=== PATIENT | male | born 1940 | race Caucasian/White ===

== ENCOUNTER 2017-03-19 05:02 | Inpatient (IN) ==
[2017-03-13 16:32] LABS: Appearance,Urine HAZY; Bilirubin,Urine NEG (NEG); Color,Urine YELLOW; Glucose,Urine (UA) NEGATIVE (NEG); Leukocyte Esterase,Urine NEG /uL (NEG); Nitrate,Urine NEG (NEG); Protein,Urine NEG (NEG); Specific Gravity,Urine 1.015 (1.000-1.035); Urine Blood NEG mg/dL (<0.03); Urobilinogen,Urine NEG (NEG)
[2017-03-13 17:27] LABS: Basophils # (Auto) 0 K/mcL (0.0-0.3); Basophils % (Auto) 0.6 % (0.0-2.0); Eosinophils # (Auto) 0.2 K/mcL (0.0-0.7); Eosinophils % (Auto) 2.8 % (0.0-7.0); Granulocytes % (Auto) 59.6 % (38.0-78.0); Lymphocytes % (Auto) 28.3 % (15.5-49.0); Mean Cell Volume 90.6 fL (80.0-100.0); Mean Corpuscular HGB Conc 34.5 g/dL (31.0-36.0); Mean Corpuscular Hemoglobin 31.3 pg (26.0-34.0); Monocytes # (Auto) 0.6 K/mcL (0.1-0.9); Monocytes % (Auto) 8.7 % (1.0-12.0); Platelet Count 249 K/mcL (140-440); RBC 4.32 M/mcL (4.50-5.90); Red Cell Distribution Width 12.6 % (11.5-14.5)
[2017-03-13 17:38] LABS: Blood Urea Nitrogen 16 mg/dl (8-23)
[~2017-03-19 05:02] MED LIST: CELECOXIB 200 MG CAPSULE PO SCH; PREGABALIN 75 MG CAPSULE PO SCH; ceFAZolin 1 GM VIAL IV SCH; oxyCODONE 10 MG TAB.ER.12H PO SCH
[2017-03-19] MEDS ORDERED: ONDANSETRON 4 MG/2 ML VIAL IV ONE (07:30)
[2017-03-19] MEDS ORDERED: PROPOFOL 200 MG/20 ML VIAL IV ONE (07:30)
[2017-03-19] MEDS ORDERED: GLYCOPYRROLATE 0.2 MG/ML VIAL IV ONE (07:30)
[2017-03-19] MEDS ORDERED: TRANEXAMIC ACID 1,000 MG/10 ML VIAL IV ONE ×2 (07:30→09:14)
[2017-03-19] MEDS ORDERED: MIDAZOLAM 2 MG/2 ML VIAL IV ONE (07:30)
[2017-03-19] MEDS ORDERED: PHENYLEPHRINE 10 MG/ML VIAL IV ONE (07:30)
[2017-03-19] MEDS ORDERED: KETAMINE 100 MG/ML ML IV ONE (07:30)
[2017-03-19] MEDS ORDERED: LIDOCAINE HCL/PF 100 MG/5 ML SYRINGE IV ONE (07:30)
[2017-03-19] MEDS ORDERED: GENTAMICIN SULFATE 800 MG/20 ML VIAL IR ONE (08:05)
[2017-03-19] MEDS ORDERED: MEPERIDINE 25 MG/ML SYRINGE IV PRN (08:44)
[2017-03-19] MEDS ORDERED: fentaNYL 100 MCG/2 ML VIAL IV PRN (08:44)
[2017-03-19] MEDS ORDERED: BENZOCAINE/MENTHOL 1 LOZENGE PO PRN ×2 (08:44→09:14)
[2017-03-19] MEDS ORDERED: ePHEDrine 50 MG/ML AMPUL IV PRN (08:44)
[2017-03-19] MEDS ORDERED: ONDANSETRON 4 MG/2 ML VIAL IV PRN ×2 (08:44→09:14)
[2017-03-19] MEDS ORDERED: METHOCARBAMOL 1,000 MG/10 ML VIAL IV PRN (08:44)
[2017-03-19] MEDS ORDERED: IPRATROPIUM/ALBUTEROL 3 ML AMPUL.NEB NEB PRN (08:44)
[2017-03-19] MEDS ORDERED: LACTATED RINGERS 1,000 ML IV SCH (08:45)
--- NOTE | 2017-03-19 09:12 | Brief Operative Note ---
Date of procedure: 03/19/17 Pre-op diagnosis: rigt hip oa Post-op diagnosis: same Procedure: right total hip arthroplasty Grafts/Implants: Yes Anesthesia: spinal Complications: none Surgeon: Chano Trent Model Engine Mechanic: Marcela Scherer Estimated blood loss (cc): 150 Specimens Removed/Pathology: none sent Condition: stable Disposition: PACU
[2017-03-19] MEDS ORDERED: FLEETS ADULT ENEMA PR PRN (09:14)
[2017-03-19] MEDS ORDERED: BISACODYL 10 MG SUPP.RECT PR PRN (09:14)
[2017-03-19] MEDS ORDERED: METHOCARBAMOL 750 MG TABLET PO PRN (09:14)
[2017-03-19] MEDS ORDERED: MAGNESIUM HYDROXIDE 30 ML ORAL.SUSP PO PRN (09:14)
[2017-03-19] MEDS ORDERED: POLYETHYLENE GLYCOL 3350 17 GM PACKET PO PRN (09:14)
[2017-03-19] MEDS: ACETAMINOPHEN 1,000 MG/100 ML BOTTLE IV SCH ×3 (09:52→20:48)
--- NOTE | 2017-03-19 10:45 | XRay Report ---
HISTORY: Reason for Exam:Post-op Total Hip FINDINGS: There is well-positioned total hip prosthesis. No fracture is present. 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 IMPRESSION: Well-positioned right hip prosthesis Interpreted and Authenticated by: Az Ribera 03/19/17
[2017-03-19] MEDS: 0.9 % SODIUM CHLORIDE 1,000 ML IV SCH ×2 (11:00→20:01)
--- NOTE | 2017-03-19 11:56 | Operative Note ---
DATE OF OPERATION: 03/19/2017 PREOPERATIVE DIAGNOSIS: Degenerative joint disease, right hip. POSTOPERATIVE DIGNOSIS: Degenerative joint disease, right hip. PROCEDURE: Right total hip arthroplasty. SURGEON: Nehemias Trent M.D. DRAWING INSTRUCTOR SURGEON: Marcela Scherer PA-C. ANESTHESIA: Spinal with LMA assist. ESTIMATED BLOOD LOSS: 150 mL. COMPLICATIONS: None noted. SPECIMENS REMOVED: None. DRAINS: None. IMPLANTS: DePuy [place] Hole Eliminator PS; DePuy Fanwood Gription acetabular shell 58 mm; DePuy Fanwood Altrx polyethylene acetabular liner +4, 10 degree, 36 x 58; DePuy Biolox delta ceramic femoral head +5, 36 mm diameter; DePuy Tri-Lock BPS femoral stem with Gription size 7 standard. INDICATIONS: The patient has had a longstanding history of worsening pain in the hip that has failed conservative treatment. Radiographs have confirmed advanced degenerative joint disease. After a long discussion about treatment options, the patient elected to proceed with a hip arthroplasty. The risks and benefits were discussed with the patient in detail including, but not limited to, the risks of anesthesia, problems with the heart or lungs related to anesthesia, infection, compromise or injury to the nerves and blood vessels, deep venous thrombosis, pulmonary embolism, pneumonia, continued pain after surgery, worsening pain or symptoms after surgery, swelling, loss of motion, instability, leg length discrepancy, and need for repeat surgery. DESCRIPTION OF PROCEDURE: The patient was seen in pre-anesthesia waiting room where all questions were answered and the correct side and site were identified and marked. The patient was then brought to the operating room and administered the anesthetic and given pre-operative antibiotics. A time-out was then called. The patient was placed in the lateral decubitus position with all prominences well padded using the Dontae frame and the extremity was prepped and draped in the usual sterile fashion. Anesthesia gave the patient 1 gm of tranexamic acid via an intravenous route. A standard posterior approach was made. We dissected through the skin and subcutaneous tissue to the deep fascia. The deep fascia was split in line with the incision and a Charnley retractor was placed. We exposed, tagged, and incised the short external rotators and piriformis tendon and retracted them posteriorly to help protect the sciatic nerve which was palpated throughout the case. We then performed a T-capsulotomy and tagged the capsule edges. Prior to dislocating the hip, we set a length and offset gauge from a Steinmann pin in the iliac wing to a case on the greater trochanter. The hip was then dislocated and a femoral neck osteotomy was performed to the pre-surgical templated level off the lesser trochanter. The head was removed and sized. We next turned our attention to the acetabulum. Retractors were placed for optimal visualization. A complete labral excision was performed. The capsule was preserved for later closure. We began reaming using anatomic landmarks with the DePuy Fanwood acetabular system. We medialized the cup and reamed up to provide good fill and coverage of the trial. When the trial was stable and appropriately positioned with approximately 20 degrees of anteversion and 45 degrees of abduction, we impacted the DePuy Fanwood cup and placed a cancellous screw in the posterior-superior quadrant. Osteophytes were removed from around the shell. We placed the trial liner and turned our attention to the femur. We placed retractors for visualization, internally rotated the femur, and established intramedullary access. We broached using the DePuy Tri-Lock stem to a stable platform medial, lateral, and rotationally with the appropriate version. We then performed a calcar reaming off the broach. Trials were then placed and optimized for leg length and stability. We used the leg length and offset guide to confirm our trials. Best stability, length, and offset characteristics were obtained with these sizes. We removed all trials and impacted the polyethylene acetabular liner in a standard fashion after a thorough irrigation. We then impacted the femoral stem to its broached location and placed the head. Final reduction was performed. Again, good stability, leg length, and offset characteristics were noted. We irrigated with three liters of antibiotic saline. We closed the capsule with #2 FiberWire. We placed a deep drain and closed the fascia with a combination of looped #0 Maxon and #0 Vicryl. We closed the subcutaneous tissue and skin in layers out to kwame in the skin. A sterile pressure dressing and abduction wedge was applied. All needle and sponge counts were correct. The patient was transferred to the recovery room in stable condition. Kristen Job ID: [id number] Doc ID: [id number] Nehemias Trent MD
[2017-03-19] MEDS: KETOROLAC 15 MG/ML VIAL IV PRN (12:29)
[2017-03-19] MEDS: ceFAZolin 1 GM VIAL IV SCH ×2 (13:55→21:44)
[2017-03-19] MEDS: 0.9 % SODIUM CHLORIDE 10 ML SYRINGE IV SCH ×2 (13:55→20:03)
[2017-03-19] MEDS: HYDROmorphone 2 MG/ML SYRINGE IV PRN ×2 (14:52→20:03)
[2017-03-19] MEDS: FERROUS SULFATE 325 MG TABLET PO SCH (17:35)
[2017-03-19] MEDS: HYDROcodone/APAP 10/325MG TABLET PO PRN (17:35)
[2017-03-19] MEDS: SENNOSIDES 1 TABLET PO SCH (20:45)
[2017-03-19] MEDS: PARoxetine 20 MG TABLET PO SCH (20:46)
[2017-03-19] MEDS: DOCUSATE SODIUM 100 MG CAPSULE PO SCH (20:46)
[2017-03-19] MEDS: ASPIRIN 325 MG ENTERIC COATED TABLET PO SCH (20:47)
[2017-03-19] MEDS: SIMVASTATIN 40 MG TABLET PO SCH (20:47)
[2017-03-19] MEDS: amLODIPine 5 MG TABLET PO SCH (20:51)
[2017-03-19] MEDS: METOPROLOL TARTRATE 50 MG TABLET PO SCH (20:51)
[2017-03-20] MEDS: ACETAMINOPHEN 1,000 MG/100 ML BOTTLE IV SCH (02:31)
[2017-03-20] MEDS: KETOROLAC 15 MG/ML VIAL IV PRN (03:59)
[2017-03-20] MEDS: 0.9 % SODIUM CHLORIDE 1,000 ML IV SCH ×3 (03:59→20:56)
[2017-03-20] MEDS: 0.9 % SODIUM CHLORIDE 10 ML SYRINGE IV SCH ×3 (04:20→23:52)
--- NOTE | 2017-03-20 06:56 | Discharge Summary ---
Providers - Providers Patient information: Note initiated : 03/20/17 at 6:54 am Service Date, if different from initiated Date: [] Patient: Figueroa Block 76 y/o M admitted on 03/19/17 for Right Total Hip Arthroplasty. Chief Complaint: [right LUPE] Patient is POD#1 s/p right LUPE. He is doing well this morning, ambulating well without much difficulty or pain. He has no complaints presently. Denies numbness , tingling, or calf pain. Discharge date: 03/20/17 Attending physician: Chano Trent Hospitalization Hospital course: Patient was brought to the hospital yesterday for a right LUPE. Was admitted overnight for pain control and observation with no noted event. We plan for d/c to home today. He will f/u in clinic in 2 weeks time. Discharge diagnosis: right hip osteoarthritis Exam - Exam Incision healing: Yes Incision draining: No Incision red: No Incision swollen: No Incision inflamed: No Clean and dry: Yes Weight bearing status: as tolerated (with ambulatory device) Range of motion: acceptable flexion, extension Ortho Discharge - LUPE - Patient Instructions Diet: Regular Diet Activity: activity as tolerated, ambulate with assistive device, weight bearing as tolerated Total Hip Protocol: Follow activity instructions as provided by Physical Therapy. Dressing Care: May shower in 2 days, Other (leave dermabond patch in place) Patient Education: Total Hip Replacement (DC) - Follow Up Plan Follow Up Appointments: Chano Trent MD [Physician] - 04/03/17 () Disposition: Home, Self-Care Prognosis: Fair Rehab Potential: Fair Overall status at discharge: patient is progressing back to baseline - Orders For Discharge Prescriptions: Aspirin [Ecotrin] 325 mg PO BID #60 tab.ec HYDROcodone/APAP 10/325MG [[place] 10/325Mg] 1 - 2 tab PO Q4HP PRN #60 tab PRN Reason: Pain Additional Discharge Orders: Physical Therapy at Discharge - LUPE Location: Determined By Patient Walker Location: Determined By Patient Pending Studies Resuscitation Status Full Code Diet Regular Diet Start Sat 3 Lunch Hydrocodone Bitart/Acetaminophen ([place] 10/325mg) 0 tab PO Q4HP PRN PRN Reason: Pain Last Admin: 03/19/17 17:35 Dose: 2 tab Amlodipine Besylate (Norvasc) 5 mg PO HS [facility]AN Last Admin: 03/19/17 20:51 Dose: Aspirin (Ecotrin) 325 mg PO BID [facility] Last Admin: 03/19/17 20:47 Dose: 325 mg Docusate Sodium (Colace) 100 mg PO BID [facility] Last Admin: 03/19/17 20:46 Dose: 100 mg [facility] Last Admin: 03/19/17 17:35 Dose: 325 mg Hydromorphone HCl (Dilaudid) 0 mg IV Q2HP PRN PRN Reason: Pain Last Admin: 03/19/17 14:52 Dose: 1 mg Sodium Chloride (Sodium Chloride 0.9%) 1,000 mls @ 125 mls/hr IV .Q8H [facility] Last Admin: 03/20/17 03:59 Dose: 125 mls/hr Infusion: 03/20/17 03:59 Dose: 125 mls/hr Admin: 03/19/17 20:01 Dose: 125 mls/hr Infusion: 03/19/17 19:00 Dose: 125 mls/hr Admin: 03/19/17 11:00 Dose: 125 mls/hr Ketorolac Tromethamine (Toradol) 15 mg IV Q6HP PRN PRN Reason: Pain Stop: 03/21/17 09:16 Last Admin: 03/20/17 03:59 Dose: 15 mg Admin: 03/19/17 12:29 Dose: 15 mg Methocarbamol (Robaxin) 750 mg PO Q6HP PRN PRN Reason: Muscle Spasm Last Admin: 03/19/17 20:13 Dose: 750 mg Metoprolol Tartrate (Lopressor) 50 mg PO BID [facility] Last Admin: 03/19/17 20:51 Dose: Paroxetine HCl (Paxil) 20 mg PO BID [facility] Last Admin: 03/19/17 20:46 Dose: 20 mg Senna (Senokot) 2 tab PO HS [facility] Last Admin: 03/19/17 20:45 Dose: 2 tab Simvastatin (Zocor) 40 mg PO QPM [facility] Last Admin: 03/19/17 20:47 Dose: 40 mg Sodium Chloride (Saline Flush) 10 ml IV Q8 [facility] Last Admin: 03/20/17 04:20 Dose: Not Given Admin: 03/19/17 20:03 Dose: 10 ml Admin: 03/19/17 13:55 Dose: Not Given Shift Summary 03/20/17 03:04 Shift Summary by Lilliam Shields Addendum entered by Lilliam Shields R.N. 03/20/17 06:22: Patient post void at 0400H >200 mls. Voided 50 mls. Original Note: Patient slept for four hours this shift. Medicated for muscle spasm with robaxin and for pain with scheduled Tylenol. See MAR. Sensation on right leg back. Pedal pulse present. Assisted ambulation to the bathroom with FWW and gait belt. Post-void bladder scans as follows: at 2036H = 106 mls and at 0226H= >200 mls. Patient voided 150 mls each time. Right hip dressing dry and intact. Patient wearing CPAP at night. Patient on room air during the day. SBP on low 90 's. Held Norvasc and Lopressor. Initialized on 03/20/17 03:04 - END OF NOTE Objective Vital Signs Temp Pulse Pulse Resp BP BP Pulse Ox 03/20/17 03:34 98.2 F 66 16 106/59 93 03/19/17 23:45 98.6 F 62 16 90/52 93 03/19/17 20:08 18 95/50 93 03/19/17 20:00 97.5 F 62 16 91/56 96 03/19/17 16:00 97.6 F 16 98/67 92 03/19/17 14:03 62 16 105/62 97 03/19/17 13:00 60 18 119/68 98 03/19/17 12:30 60 18 113/68 98 03/19/17 12:05 60 16 127/78 98 03/19/17 11:50 60 16 116/73 97 03/19/17 11:35 60 16 111/72 95 03/19/17 11:31 94 03/19/17 11:20 62 18 105/67 94 03/19/17 11:05 60 16 103/67 95 03/19/17 10:50 61 16 105/67 95 03/19/17 10:37 97.0 F 60 11 L 111/63 03/19/17 10:25 61 60 11 L 96/62 97 03/19/17 10:10 61 61 12 93/60 98 03/19/17 09:55 60 60 12 101/58 100 03/19/17 09:40 97.0 F 66 66 10 L 107/63 100 - Intake & Output Intake & Output: Intake & Output 03/19/17 03/20/17 03/20/17 21:59 05:59 13:59 Intake Total 2440 / 2440 1496 / 1496 Output Total 755 / 755 200 / 200 Balance 1685 / 1685 1296 / 1296 Weight 223 lb Intake: IV 1200 / 1200 1096 / 1096 Sodium Chloride 0.9% 1,000 ml @ 1000 / 1000 996 / 996 125 mls/hr IV .Q8H [facility] Rx#: [id number] Oral 1240 / 1240 400 / 400 Output: Void Amount 755 / 755 200 / 200 Straight 525 / 525 Other: Meal Dinner Percent of Meal Consumed 100% Feeding Ability Independent - Physical Examination General: Appears Well, No Apparent Distress Neuro: Motor Function Intact, Sensory Function Intact - Labs and Meds CBC 03/20/17 Range/Units 04:50 Hgb 10.6 L (13.5-16.5) g/dL Hct 30.7 L (41.0-55.0) % Current Medications Generic Name Dose Route Start Last Admin Trade Name Freq PRN Reason Stop Dose Admin Hydrocodone Bitart/Acetaminophen 0 tab 03/19/17 09:14 03/19/17 17:35 [place] 10/325mg PO 2 tab Q4HP PRN Administration Pain Amlodipine Besylate 5 mg 03/19/17 21:00 03/19/17 20:51 Norvasc PO Not Given HS BRAN Aspirin 325 mg 03/19/17 21:00 03/19/17 20:47 Ecotrin PO 325 mg BID BRAN Administration Bisacodyl 10 mg 03/19/17 09:14 Dulcolax [place] Q2-3DAYS PRN Constipation Docusate Sodium 100 mg 03/19/17 21:00 03/19/17 20:46 Colace PO 100 mg BID BRAN Administration Ferrous Sulfate 325 mg 03/19/17 17:30 03/19/17 17:35 Ferrous Sulfate PO 325 mg BIDCC BRAN Administration Hydromorphone HCl 0 mg 03/19/17 09:14 03/19/17 14:52 Dilaudid IV 1 mg Q2HP PRN Administration Pain Sodium Chloride 1,000 mls @ 125 mls/hr 03/19/17 09:15 03/20/17 03:59 Sodium Chloride 0.9% IV 125 mls/hr .Q8H [facility] Administration Ketorolac Tromethamine 15 mg 03/19/17 09:14 03/20/17 03:59 Toradol IV 03/21/17 09:16 15 mg Q6HP PRN Administration Pain Magnesium Hydroxide 30 ml 03/19/17 09:14 Milk Of Magnesia PO BIDP PRN Constipation Methocarbamol 750 mg 03/19/17 09:14 03/19/17 20:13 Robaxin PO 750 mg Q6HP PRN Administration Muscle Spasm Metoprolol Tartrate 50 mg 03/19/17 21:00 03/19/17 20:51 Lopressor PO Not Given BID BRAN Ondansetron HCl 4 mg 03/19/17 09:14 Zofran IV Q4HP PRN Nausea And Vomiting Paroxetine HCl 20 mg 03/19/17 21:00 03/19/17 20:46 Paxil PO 20 mg BID BRAN Administration Polyethylene Glycol 17 gm 03/19/17 09:14 Miralax PO DAILYP PRN Constipation Senna 2 tab 03/19/17 21:00 03/19/17 20:45 Senokot PO 2 tab HS BRAN Administration Simvastatin 40 mg 03/19/17 21:00 03/19/17 20:47 Zocor PO 40 mg QPM BRAN Administration Sodium Biphosphate/Sodium Phosphate 1 dose 03/19/17 09:14 Fleets Adult [place] Q3-4DAYS PRN Constipation Sodium Chloride 10 ml 03/19/17 14:00 03/20/17 04:20 Saline Flush IV Not Given Q8 BRAN Throat Lozenges 1 lozenge 03/19/17 09:14 Cepacol PO PRN PRN Sore Throat Vitamin D 1,000 unit 03/20/17 09:00 Vitamin D3 PO DAILY BRAN Intake and Output 03/19/17 03/20/17 03/20/17 21:59 05:59 13:59 Intake Total 2440 / 2440 1496 / 1496 Output Total 755 / 755 200 / 200 Balance 1685 / 1685 1296 / 1296 Intake: IV 1200 / 1200 1096 / 1096 Sodium Chloride 0.9% 1,000 ml @ 1000 / 1000 996 / 996 125 mls/hr IV .Q8H [facility] Rx#: [id number] Oral 1240 / 1240 400 / 400 Output: Void Amount 755 / 755 200 / 200 Straight 525 / 525 Other: Meal Dinner Percent of Meal Consumed 100% Feeding Ability Independent Weight 223 lb
[2017-03-20] MEDS: ASPIRIN 325 MG ENTERIC COATED TABLET PO SCH ×2 (08:10→20:54)
[2017-03-20] MEDS: VITAMIN D3 1,000 UNIT TABLET PO SCH (08:10)
[2017-03-20] MEDS: PARoxetine 20 MG TABLET PO SCH ×2 (08:10→20:54)
[2017-03-20] MEDS: DOCUSATE SODIUM 100 MG CAPSULE PO SCH ×2 (08:10→20:54)
[2017-03-20] MEDS: FERROUS SULFATE 325 MG TABLET PO SCH ×2 (08:10→17:17)
[2017-03-20] MEDS: METOPROLOL TARTRATE 50 MG TABLET PO SCH ×2 (08:10→20:53)
[2017-03-20] MEDS: HYDROcodone/APAP 10/325MG TABLET PO PRN (14:12)
[2017-03-20] MEDS ORDERED: COD PO PRN (19:01)
[2017-03-20] MEDS ORDERED: ACETAMINOPHEN PO PRN (19:01)
[2017-03-20] MEDS: SENNOSIDES 1 TABLET PO SCH (20:53)
[2017-03-20] MEDS: amLODIPine 5 MG TABLET PO SCH (20:54)
[2017-03-20] MEDS: ACETAMINOPHEN W/CODEINE #3 1 TABLET PO PRN (20:54)
[2017-03-20] MEDS: SIMVASTATIN 40 MG TABLET PO SCH (20:54)
[2017-03-21] MEDS: 0.9 % SODIUM CHLORIDE 1,000 ML IV SCH ×2 (03:38→08:09)
[2017-03-21] MEDS: ACETAMINOPHEN W/CODEINE #3 1 TABLET PO PRN (04:54)
[2017-03-21] MEDS: 0.9 % SODIUM CHLORIDE 10 ML SYRINGE IV SCH (04:55)
--- NOTE | 2017-03-21 07:05 | Orthopedic Progress Note ---
Subjective Patient information: Note initiated : 03/21/17 at 7:04 am Service Date, if different from initiated Date: [] Patient: Figueroa Block 76 y/o M admitted on 03/19/17 for Right Total Hip Arthroplasty. Chief Complaint: [] Interval history: doing well. pain under control Objective Vital signs: Vital Signs Temp Pulse Pulse Resp BP Pulse Ox 03/21/17 02:51 98.9 F 74 18 125/72 95 03/21/17 00:00 98.6 F 102 H 18 125/66 95 03/20/17 20:00 98.4 F 82 18 125/65 94 03/20/17 15:32 98.5 F 20 116/60 95 03/20/17 11:08 98.9 F 20 122/67 94 03/20/17 07:55 98.7 F 20 111/64 95 03/20/17 07:25 74 92 Intake and Output 03/20/17 03/21/17 03/21/17 21:59 05:59 13:59 Intake Total 940 / 940 100 / 100 Output Total 500 / 500 225 / 225 Balance 440 / 440 -125 / -125 Intake: Oral 940 / 940 100 / 100 Output: Void Amount 500 / 500 225 / 225 Other: Meal Dinner Percent of Meal Consumed 100% Feeding Ability Independent # Voids 1 1 Weight 223 lb Intake & Output: Intake & Output 03/20/17 03/21/17 03/21/17 21:59 05:59 13:59 Intake Total 940 / 940 100 / 100 Output Total 500 / 500 225 / 225 Balance 440 / 440 -125 / -125 Weight 223 lb Intake: Oral 940 / 940 100 / 100 Output: Void Amount 500 / 500 225 / 225 Other: Meal Dinner Percent of Meal Consumed 100% Feeding Ability Independent # Voids 1 1 Incision: Yes healing Incision clean and dry: Yes Dressing: Yes clean, Yes dry, Yes intact Weight bearing status: full Neurological exam IM: Yes alert, Yes normal gait, Yes oriented X3, Yes motor sensory intact, Yes neurovascular intact Extremities exam IM: No calf tenderness, Yes Foot pink and warm, Yes neurovascular intact - Labs CBC & BMP: 03/20/17 04:50 03/13/17 14:12 Labs: Orthopedic Labs 03/13/17 14:12 PT 14.7 H INR 1.1 03/21/17 03/20/17 03/13/17 06:17 04:50 14:12 Hgb Pending 10.6 L 13.5 Hct Pending 30.7 L 39.2 L Assessment and Plan (1) Hip osteoarthritis pod 2 s/p right rolo wbat pain control dvt prophylaxis d/c planning Status: Acute
[2017-03-21] MEDS: DOCUSATE SODIUM 100 MG CAPSULE PO SCH (08:06)
[2017-03-21] MEDS: PARoxetine 20 MG TABLET PO SCH (08:06)
[2017-03-21] MEDS: METOPROLOL TARTRATE 50 MG TABLET PO SCH (08:07)
[2017-03-21] MEDS: FERROUS SULFATE 325 MG TABLET PO SCH (08:07)
[2017-03-21] MEDS: ASPIRIN 325 MG ENTERIC COATED TABLET PO SCH (08:07)
[2017-03-21] MEDS: VITAMIN D3 1,000 UNIT TABLET PO SCH (08:07)
== END 2017-03-21 09:00 | disposition home or self-care (01) | DRG 470 ==
LOC: MEDSUR 05:02
PROVIDERS: ADMIT Orthopaedic Surgery Sports Medicine; ATTEND Orthopaedic Surgery Sports Medicine